=== PATIENT | male | born 1935 | race Caucasian/White ===

== ENCOUNTER 2024-04-22 12:50 | Inpatient (IN) | payer OTHER, BC ==
[2024-04-22] MEDS ORDERED: ACETAMINOPHEN INJECTION 100 ML ONE (13:34)
[2024-04-22] MEDS ORDERED: PIPERACILLIN/TAZOB 4.5 GM 4.5 GM/100 ML BAG IVPB ONE (13:35)
[2024-04-22 13:55] LABS: BASO % 0.1 % (0-2.0); HEMOGLOBIN 11.6 GM/dL (11.7-16.9); LYMPH % 3.8 % (8-40); MCH 34.4 pg (25.7-33.7); MCHC 33.3 g/dl (32.0-35.9); MEAN CELL VOLUME 103.4 fl (80-96); MEAN PLT VOLUME 8.3 fl (7.5-11.1); MONO % 9.2 % (3.8-10.2); NEUT % 86.9 % (42.8-82.8); PLATELET COUNT 211 10^3/uL (134-434); RBC 3.38 M/mm3 (4.00-5.60); RDW 14.1 % (11.9-15.9); VENOUS BASE EXCESS 8.3 mmol/L (-2-2); VENOUS O2 SATURATION 88.4 % (70-80); VENOUS PCO2 45.3 mmHg (38-52); VENOUS PH 7.48 (7.310-7.410); WHITE BLOOD COUNT 17.2 K/mm3 (4.0-10.0)
[2024-04-22] MEDS: PIPERACILLIN/TAZOB 4.5 GM 4.5 GM in DEXTROSE 5%-WATER 100 ML IVPB ONE (14:02)
[2024-04-22] MEDS: ACETAMINOPHEN 1000 MG/100 ML BAG IVPB ONE (14:02)
[2024-04-22] MEDS: SODIUM CHLORIDE 0.9% 1000 ML INFUS.BAG IV STA (14:03)
[2024-04-22 14:07] LABS: PH,URINE 5.5 (5.0-8.0); URINE APPEARANCE CLEAR; URINE BILIRUBIN NEGATIVE (NEGATIVE); URINE COLOR YELLOW; URINE GLUCOSE (UA) NEGATIVE (NEGATIVE); URINE KETONE NEGATIVE (NEGATIVE); URINE LEUK ESTERASE NEGATIVE (NEGATIVE); URINE NITRITE NEGATIVE (NEGATIVE); URINE PROTEIN NEGATIVE (NEGATIVE); URINE UROBILINOGEN 0.2 mg/dL (0.2-1.0)
[2024-04-22 14:09] LABS: INR 2.03 (0.83-1.09); PROTHROMBIN TIME (PATIENT) 22.5 SEC (9.7-13.0)
[2024-04-22 14:15] LABS: POTASSIUM 3.7 mmol/L (3.5-5.1)
[2024-04-22 14:17] LABS: BLOOD UREA NITROGEN 39.8 mg/dL (7-18); CALCIUM 9.5 mg/dL (8.5-10.1)
[2024-04-22 14:20] LABS: CREATININE 1.6 mg/dL (0.55-1.3)
[2024-04-22] MEDS ORDERED: ALBUTEROL SO4 2.5/IPRATROPIUM 0.5 INH SOL 3 ML VIAL.NEB. NEB ONE (14:20)
[2024-04-22 14:22] LABS: BILIRUBIN,TOTAL 0.7 mg/dL (0.2-1); TOT PROT 6.2 g/dl (6.4-8.2)
[2024-04-22 14:26] LABS: LACTIC ACID 3.6 mmol/L (0.4-2.0)
[2024-04-22] MEDS: VANCOMYCIN PREMIX 1.5 GM 1,500 MG/300 ML BAG IVPB ONE (14:41)
[2024-04-22] MEDS: ALBUTEROL SO4 2.5/IPRATROPIUM 0.5 INH SOL 3 ML VIAL.NEB. NEB ONE (14:41)
[2024-04-22] MEDS: VANCOMYCIN HCL 1,500 MG in DEXTROSE 5%-WATER - 500 ML IVPB ONE (14:42)
[2024-04-22] MEDS: ALBUTEROL SO4 2.5/IPRATROPIUM 0.5 INH SOL 3 ML VIAL.NEB. NEB SCH ×3 (16:15→21:03)
[2024-04-22] MEDS ORDERED: morphine SULFATE 10 MG/5 ML UNIT-DOSE CUP PO PRN (17:24)
[2024-04-22] MEDS: methylPREDNISolone NA SUCC 40 MG/1 ML VIAL IVPUSH SCH (20:48)
[2024-04-22] MEDS: LACTATED RINGERS SOLUTION 1,000 ML/1,000 ML INFUS.BAG IV SCH (21:04)
[2024-04-22] MEDS: ACETAMINOPHEN 1000 MG/100 ML BAG IVPB PRN (21:06)
[2024-04-22] MEDS: PANTOPRAZOLE SODIUM 40 MG VIAL IVPUSH SCH (23:15)
[2024-04-22] MEDS: morphine SULFATE 4 MG/ML VIAL IVPUSH PRN (23:15)
[2024-04-22] MEDS: PIPERACILLIN/TAZOB 4.5 GM 4.5 GM/100 ML BAG IVPB SCH (23:19)
[2024-04-23] MEDS: ALBUTEROL SO4 2.5/IPRATROPIUM 0.5 INH SOL 3 ML VIAL.NEB. NEB SCH (00:07)
[2024-04-23] MEDS: morphine SULFATE 4 MG/ML VIAL IVPUSH ONE (06:10)
[2024-04-23 08:40] LABS: BASO % 0.4 % (0-2.0); EOS % 0.1 % (0-4.5); HEMATOCRIT 30.2 % (35.4-49); HEMOGLOBIN 10.1 GM/dL (11.7-16.9); LYMPH % 5.1 % (8-40); MCHC 33.4 g/dl (32.0-35.9); MEAN CELL VOLUME 104.6 fl (80-96); MEAN PLT VOLUME 8.3 fl (7.5-11.1); MONO % 4.5 % (3.8-10.2); NEUT % 89.9 % (42.8-82.8); PLATELET COUNT 171 10^3/uL (134-434); RBC 2.89 M/mm3 (4.00-5.60); RDW 14.5 % (11.9-15.9); WHITE BLOOD COUNT 13.4 K/mm3 (4.0-10.0)
[2024-04-23 08:55] LABS: POTASSIUM 3.1 mmol/L (3.5-5.1)
[2024-04-23 08:57] LABS: CALCIUM 9.1 mg/dL (8.5-10.1)
[2024-04-23 08:58] LABS: BLOOD UREA NITROGEN 46.6 mg/dL (7-18)
[2024-04-23 09:01] LABS: CREATININE 1.7 mg/dL (0.55-1.3)
[2024-04-23] MEDS: VANCOMYCIN/WATER 1250 MG 1,250 MG/250 ML BAG IVPB SCH (14:30)
[2024-04-23] MEDS: PIPERACILLIN/TAZOB 3.375 GM 50 ML IVPB SCH (17:10)
[2024-04-23] MEDS: PIPERACILLIN/TAZOB 4.5 GM 4.5 GM in DEXTROSE 5%-WATER 100 ML IVPB SCH (17:19)
[2024-04-23] MEDS: AMINO ACIDS 4.25%/D5W 1,000 ML IV SCH (19:35)
[2024-04-23] MEDS: D5-1/2NS+10 MEQ KCL - 10 MEQ/1,000 ML INFUS.BAG IV SCH (20:01)
[2024-04-23] MEDS: morphine SULFATE 4 MG/ML VIAL IVPUSH PRN (23:02)
[2024-04-24 07:37] LABS: HEMATOCRIT 29.1 % (35.4-49); HEMOGLOBIN 9.5 GM/dL (11.7-16.9); MCH 34.5 pg (25.7-33.7); MCHC 32.7 g/dl (32.0-35.9); MEAN CELL VOLUME 105.6 fl (80-96); MEAN PLT VOLUME 8.2 fl (7.5-11.1); PLATELET COUNT 180 10^3/uL (134-434); RBC 2.75 M/mm3 (4.00-5.60); RDW 14.2 % (11.9-15.9)
[2024-04-24 07:50] LABS: CHLORIDE 109 mmol/L (98-107); POTASSIUM 2.9 mmol/L (3.5-5.1); SODIUM 146 mmol/L (136-145)
[2024-04-24 07:53] LABS: CALCIUM 9.4 mg/dL (8.5-10.1)
[2024-04-24 07:54] LABS: ALBUMIN 2.7 g/dl (3.4-5.0); ANION GAP 7 mmol/L (4-13); BLOOD UREA NITROGEN 39.6 mg/dL (7-18); CO2 31 mmol/L (21-32); GLUCOSE,RANDOM 165 mg/dL (74-106); MAGNESIUM 2.2 mg/dL (1.8-2.4)
[2024-04-24 07:57] LABS: CREATININE 1.3 mg/dL (0.55-1.3)
[2024-04-24 07:58] LABS: BILIRUBIN,TOTAL 0.6 mg/dL (0.2-1); PHOSPHOROUS 3.1 mg/dL (2.5-4.9); SGOT/AST 18 U/L (15-37); SGPT/ALT 15 U/L (13-61); TOT PROT 5.4 g/dl (6.4-8.2)
[2024-04-24 08:11] LABS: ALK PHOS 92 U/L (45-117)
[2024-04-24] MEDS: PANTOPRAZOLE SODIUM 40 MG VIAL IVPUSH SCH (10:23)
[2024-04-24] MEDS: D5-1/2NS+20 MEQ KCL - 20 MEQ/1,000 ML INFUS.BAG IV SCH (19:38)
[2024-04-24] MEDS: KCL 10 MEQ IVPB 10 MEQ/100 ML INFUS.BAG IVPB SCH (19:39)
[2024-04-25 08:29] LABS: POTASSIUM 3.2 mmol/L (3.5-5.1)
[2024-04-25 08:37] LABS: ALBUMIN 2.8 g/dl (3.4-5.0); BLOOD UREA NITROGEN 31.2 mg/dL (7-18); CALCIUM 9.6 mg/dL (8.5-10.1)
[2024-04-25 08:40] LABS: CREATININE 1.1 mg/dL (0.55-1.3)
[2024-04-25 08:41] LABS: BILIRUBIN,TOTAL 0.6 mg/dL (0.2-1); PHOSPHOROUS 2.1 mg/dL (2.5-4.9); TOT PROT 5.5 g/dl (6.4-8.2)
[2024-04-25 08:55] LABS: HEMATOCRIT 28.4 % (35.4-49); HEMOGLOBIN 9.5 GM/dL (11.7-16.9); MCH 35.1 pg (25.7-33.7); MCHC 33.3 g/dl (32.0-35.9); MEAN CELL VOLUME 105.2 fl (80-96); MEAN PLT VOLUME 8.2 fl (7.5-11.1); PLATELET COUNT 190 10^3/uL (134-434); RDW 14.2 % (11.9-15.9); WHITE BLOOD COUNT 13.2 K/mm3 (4.0-10.0)
[2024-04-25] MEDS: POTASSIUM PHOSPHATE 30 MM in SODIUM CHLORIDE 500 ML IVPB ONE (17:38)
[2024-04-25] MEDS: methylPREDNISolone NA SUCC 40 MG/1 ML VIAL IVPUSH SCH (18:45)
[2024-04-26 07:13] LABS: HEMATOCRIT 28.6 % (35.4-49); HEMOGLOBIN 9.4 GM/dL (11.7-16.9); MCH 34.8 pg (25.7-33.7); MCHC 32.8 g/dl (32.0-35.9); MEAN CELL VOLUME 106.3 fl (80-96); MEAN PLT VOLUME 8.2 fl (7.5-11.1); PLATELET COUNT 185 10^3/uL (134-434); RBC 2.69 M/mm3 (4.00-5.60); RDW 14.3 % (11.9-15.9); WHITE BLOOD COUNT 11.3 K/mm3 (4.0-10.0)
[2024-04-26 07:43] LABS: POTASSIUM 3.7 mmol/L (3.5-5.1)
[2024-04-26 07:47] LABS: ALBUMIN 2.6 g/dl (3.4-5.0); CALCIUM 9.2 mg/dL (8.5-10.1)
[2024-04-26 07:48] LABS: BLOOD UREA NITROGEN 25.2 mg/dL (7-18); MAGNESIUM 2.1 mg/dL (1.8-2.4)
[2024-04-26 07:51] LABS: PHOSPHOROUS 3.6 mg/dL (2.5-4.9)
[2024-04-26 07:52] LABS: BILIRUBIN,TOTAL 0.6 mg/dL (0.2-1); TOT PROT 5.4 g/dl (6.4-8.2)
[2024-04-26] MEDS: FUROSEMIDE 40 MG/4 ML INJECTABLE VIAL IVPUSH ONE (13:47)
[2024-04-26] MEDS: APIXABAN 5 MG TABLET PO SCH (22:00)
[2024-04-28] MEDS: METOPROLOL TARTRATE 5 MG/5 ML VIAL IVPUSH PRN (08:16)
[2024-04-28 08:29] LABS: BASO % 0.1 % (0-2.0); EOS % 0.3 % (0-4.5); HEMATOCRIT 29.6 % (35.4-49); HEMOGLOBIN 9.9 GM/dL (11.7-16.9); LYMPH % 15.9 % (8-40); MCH 35.1 pg (25.7-33.7); MCHC 33.6 g/dl (32.0-35.9); MEAN CELL VOLUME 104.4 fl (80-96); MEAN PLT VOLUME 7.8 fl (7.5-11.1); MONO % 6.2 % (3.8-10.2); NEUT % 77.5 % (42.8-82.8); PLATELET COUNT 180 10^3/uL (134-434); RBC 2.83 M/mm3 (4.00-5.60); RDW 14.3 % (11.9-15.9); WHITE BLOOD COUNT 9.5 K/mm3 (4.0-10.0)
[2024-04-28 09:01] LABS: ALBUMIN 2.7 g/dl (3.4-5.0); BLOOD UREA NITROGEN 16.2 mg/dL (7-18); CALCIUM 9.6 mg/dL (8.5-10.1); MAGNESIUM 2.2 mg/dL (1.8-2.4)
[2024-04-28 09:04] LABS: BILIRUBIN,TOTAL 0.8 mg/dL (0.2-1); CREATININE 0.7 mg/dL (0.55-1.3); TOT PROT 5.2 g/dl (6.4-8.2)
[2024-04-28 09:05] LABS: PHOSPHOROUS 1.9 mg/dL (2.5-4.9)
[2024-04-28] MEDS: KCL 10 MEQ IVPB 10 MEQ/100 ML INFUS.BAG IVPB SCH (10:35)
[2024-04-28] MEDS: POTASSIUM PHOSPHATE 30 MM in DEXTROSE 5%-WATER - 500 ML IVPB ONE (15:48)
[2024-04-28] MEDS: DEXTROSE 5%-WATER - 1,000 ML IV SCH (17:40)
[2024-04-28 23:53] VITALS: BMI 23.0
[2024-04-29 08:36] LABS: BLOOD UREA NITROGEN 15.4 mg/dL (7-18); CALCIUM 8.4 mg/dL (8.5-10.1); MAGNESIUM 1.8 mg/dL (1.8-2.4)
[2024-04-29 08:37] LABS: ALBUMIN 2.5 g/dl (3.4-5.0); CREATININE 0.9 mg/dL (0.55-1.3)
[2024-04-29 08:38] LABS: BILIRUBIN,TOTAL 0.8 mg/dL (0.2-1)
[2024-04-29 08:39] LABS: PHOSPHOROUS 2.6 mg/dL (2.5-4.9)
[2024-04-29 08:40] LABS: HEMATOCRIT 29.5 % (35.4-49); HEMOGLOBIN 9.9 GM/dL (11.7-16.9); MCH 35.2 pg (25.7-33.7); MCHC 33.6 g/dl (32.0-35.9); MEAN CELL VOLUME 104.6 fl (80-96); MEAN PLT VOLUME 8.3 fl (7.5-11.1); PLATELET COUNT 171 10^3/uL (134-434); RBC 2.82 M/mm3 (4.00-5.60); RDW 14.3 % (11.9-15.9); WHITE BLOOD COUNT 11.4 K/mm3 (4.0-10.0)
[2024-04-29 08:48] LABS: TOT PROT 4.9 g/dl (6.4-8.2)
[2024-04-29] MEDS ORDERED: KCL 10 MEQ IVPB 10 MEQ/100 ML INFUS.BAG IVPB SCH (11:30)
[2024-04-29] MEDS: KCL 10 MEQ IVPB 10 MEQ/100 ML INFUS.BAG IVPB SCH ×2 (13:08→16:34)
[2024-04-30] MEDS: KCL 10 MEQ IVPB 10 MEQ/100 ML INFUS.BAG IVPB SCH (00:12)
[2024-04-30 08:25] LABS: HEMATOCRIT 29.9 % (35.4-49); MCH 34.7 pg (25.7-33.7); MCHC 33.3 g/dl (32.0-35.9); MEAN CELL VOLUME 104.4 fl (80-96); MEAN PLT VOLUME 8.4 fl (7.5-11.1); PLATELET COUNT 170 10^3/uL (134-434); RBC 2.86 M/mm3 (4.00-5.60); RDW 14.4 % (11.9-15.9); WHITE BLOOD COUNT 11.5 K/mm3 (4.0-10.0)
[2024-04-30] MEDS: ALBUTEROL SO4 2.5/IPRATROPIUM 0.5 INH SOL 3 ML VIAL.NEB. NEB PRN (08:42)
[2024-04-30 08:46] LABS: POTASSIUM 3.7 mmol/L (3.5-5.1)
[2024-04-30 08:56] LABS: CALCIUM 8.6 mg/dL (8.5-10.1)
[2024-04-30 08:57] LABS: ALBUMIN 2.4 g/dl (3.4-5.0); BLOOD UREA NITROGEN 12.8 mg/dL (7-18); MAGNESIUM 1.7 mg/dL (1.8-2.4)
[2024-04-30 09:00] LABS: PHOSPHOROUS 1.7 mg/dL (2.5-4.9)
[2024-04-30 09:01] LABS: BILIRUBIN,TOTAL 0.7 mg/dL (0.2-1); CREATININE 0.7 mg/dL (0.55-1.3)
[2024-04-30] MEDS: METOPROLOL TARTRATE 25 MG TABLET (FP) PO SCH (22:33)
[2024-05-01 07:36] VITALS: RESP 18
[2024-05-01 07:39] LABS: HEMOGLOBIN 9.9 GM/dL (11.7-16.9); MCH 34.8 pg (25.7-33.7); MCHC 33.1 g/dl (32.0-35.9); MEAN CELL VOLUME 105.4 fl (80-96); MEAN PLT VOLUME 8.6 fl (7.5-11.1); PLATELET COUNT 169 10^3/uL (134-434); RBC 2.84 M/mm3 (4.00-5.60); RDW 13.9 % (11.9-15.9); WHITE BLOOD COUNT 12.2 K/mm3 (4.0-10.0)
[2024-05-01 08:10] LABS: POTASSIUM 3.5 mmol/L (3.5-5.1)
[2024-05-01 08:16] LABS: ALBUMIN 2.4 g/dl (3.4-5.0); BLOOD UREA NITROGEN 11.3 mg/dL (7-18); MAGNESIUM 1.5 mg/dL (1.8-2.4)
[2024-05-01 08:17] LABS: CALCIUM 8.4 mg/dL (8.5-10.1)
[2024-05-01 08:20] LABS: CREATININE 0.7 mg/dL (0.55-1.3); PHOSPHOROUS 1.5 mg/dL (2.5-4.9)
[2024-05-01 08:21] LABS: BILIRUBIN,TOTAL 0.8 mg/dL (0.2-1); TOT PROT 5.1 g/dl (6.4-8.2)
[2024-05-01] MEDS ORDERED: MAGNESIUM 2GM/50ML STERILE WATER IVPB IVPB ONE (09:31)
[2024-05-01] MEDS: MAGNESIUM 2GM/50ML STERILE WATER IVPB IVPB SCH (10:09)
[2024-05-01] MEDS: NAPH,MB-DB/K PH,MBDB POWDER PACKET PO ONE (10:09)
[2024-05-01] MEDS: POTASSIUM PHOSPHATE 30 MM in DEXTROSE 5%-WATER - 500 ML IVPB ONE (11:23)
[2024-05-01 18:21] VITALS: BP 119/72; PULSE 87; TEMP 98.5
[2024-05-01] MEDS: ACETAMINOPHEN 500 MG TABLET (FP) PO ONE (21:25)
== END 2024-05-01 21:37 | DRG 871 ==
LOC: JER 12:50 → JERBED 15:40 → J4W 17:53
PROVIDERS: ADMIT Internal Medicine; ATTEND Internal Medicine
DX: A41.89 Other specified sepsis (principal); J12.1 Respiratory syncytial virus pneumonia; J18.9 Pneumonia, unspecified organism; E87.0 Hyperosmolality and hypernatremia; I48.20 Chronic atrial fibrillation, unspecified; I50.32 Chronic diastolic (congestive) heart failure; K92.0 Hematemesis; J44.0 Chronic obstructive pulmonary disease with (acute) lower respiratory infection; I11.0 Hypertensive heart disease with heart failure; N40.0 Benign prostatic hyperplasia without lower urinary tract symptoms; R00.0 Tachycardia, unspecified; E83.39 Other disorders of phosphorus metabolism; E87.6 Hypokalemia; J44.9 Chronic obstructive pulmonary disease, unspecified; F01.50 Vascular dementia, unspecified severity, without behavioral disturbance, psychotic disturbance, mood disturbance, and anxiety; I69.391 Dysphagia following cerebral infarction; Z95.0 Presence of cardiac pacemaker; Z96.659 Presence of unspecified artificial knee joint
CPT/HCPCS: 0241U-QW; 36415; 71045-TC-FY; 71250-TC; 80048; 80053; 81003; 82607; 82728; 82746; 82803; 82962; 83540; 83550; 83605; 83735; 84100; 84132; 84484; 85025; 85027; 85610; 85730; 86850; 86900; 86901; 87040; 87086; 87186; 93005; 93010; 93971-TC; 94640; 94660; 99285-25; G0480; J0131

== ENCOUNTER 2024-06-06 14:12 | Inpatient (IN) | payer OTHER, BC ==
[2024-06-06] MEDS ORDERED: ALBUTEROL SO4 2.5/IPRATROPIUM 0.5 INH SOL 3 ML VIAL.NEB. NEB ONE ×3 (15:28→20:54)
[2024-06-06] MEDS: ALBUTEROL SO4 2.5/IPRATROPIUM 0.5 INH SOL 3 ML VIAL.NEB. NEB SCH ×2 (15:31→21:00)
[2024-06-06 15:41] LABS: VENOUS BASE EXCESS 10.3 mmol/L (-2-2); VENOUS O2 SATURATION 25.1 % (70-80); VENOUS PH 7.322 (7.310-7.410)
[2024-06-06 15:43] LABS: BASO % 0.3 % (0-2.0); EOS % 0.1 % (0-4.5); HEMATOCRIT 35.5 % (35.4-49); HEMOGLOBIN 11.1 GM/dL (11.7-16.9); LYMPH % 11.1 % (8-40); MCH 32.5 pg (25.7-33.7); MCHC 31.2 g/dl (32.0-35.9); MEAN CELL VOLUME 104.2 fl (80-96); MEAN PLT VOLUME 8.6 fl (7.5-11.1); MONO % 3.9 % (3.8-10.2); NEUT % 84.6 % (42.8-82.8); PLATELET COUNT 302 10^3/uL (134-434)
[2024-06-06 15:51] LABS: INR 1.67 (0.83-1.09); PROTHROMBIN TIME (PATIENT) 18.9 SEC (9.7-13.0)
[2024-06-06 15:53] LABS: EPI CELLS 10 /uL (0-25.1); HYALINE CASTS 0 /uL (0-3.1); URINE APPEARANCE CLEAR; URINE BACTERIA 5 /uL (0-1359); URINE BILIRUBIN NEGATIVE (NEGATIVE); URINE COLOR YELLOW; URINE GLUCOSE (UA) NEGATIVE (NEGATIVE); URINE KETONE NEGATIVE (NEGATIVE); URINE LEUK ESTERASE NEGATIVE (NEGATIVE); URINE NITRITE NEGATIVE (NEGATIVE); URINE PROTEIN NEGATIVE (NEGATIVE); URINE RBC 131 /uL (0-23.9); URINE UROBILINOGEN 0.2 mg/dL (0.2-1.0); URINE WBC 14 /uL (0-25.8)
[2024-06-06 15:54] LABS: ACTIVATED PTT 34.8 SECONDS (25.2-36.5); VENOUS PCO2 77.1 mmHg (38-52)
[2024-06-06 16:10] LABS: LACTIC ACID 3.8 mmol/L (0.4-2.0)
[2024-06-06] MEDS: SODIUM CHLORIDE 0.9% 500 ML INFUS.BAG IV ONE ×2 (16:29→17:52)
[2024-06-06] MEDS: SODIUM CHLORIDE 500 ML IV STA ×2 (16:30→21:00)
[2024-06-06] MEDS ORDERED: PIPERACILLIN/TAZOB 3.375 GM 3.375 GM/50 ML BAG IVPB ONE (16:32)
[2024-06-06] MEDS ORDERED: methylPREDNISolone NA SUCC 125 MG/2 ML VIAL ONE ×2 (16:32→16:36)
[2024-06-06] MEDS ORDERED: MAGNESIUM SULFATE IN WATER 2 GM/50 ML IVPB IVPB ONE (16:36)
[2024-06-06 16:45] LABS: ALBUMIN 2.5 g/dl (3.4-5.0); BILIRUBIN,TOTAL 0.2 mg/dL (0.2-1); BLOOD UREA NITROGEN 28.3 mg/dL (7-18); CALCIUM 9.1 mg/dL (8.5-10.1); TOT PROT 6.9 g/dl (6.4-8.2)
[2024-06-06] MEDS: MAGNESIUM SULFATE IN WATER 2 GM/50 ML IVPB IVPB ONE (16:46)
[2024-06-06] MEDS: methylPREDNISolone NA SUCC 125 MG/2 ML VIAL IVPB ONE (16:46)
[2024-06-06] MEDS: PIPERACILLIN/TAZOB 3.375 GM 3.375 GM in DEXTROSE 5%-WATER - 50 ML IVPB ONE (16:58)
[2024-06-06] MEDS ORDERED: VANCOMYCIN 1 GM PREMIX (F) 1 GM/200 ML BAG ONE (17:39)
[2024-06-06] MEDS: VANCOMYCIN 1,000 MG in DEXTROSE 5%-WATER - 250 ML IVPB ONE (18:04)
[2024-06-06] MEDS ORDERED: METOPROLOL TARTRATE 5 MG/5 ML VIAL IVPUSH PRN (18:32)
[2024-06-06 19:00] LABS: LACTIC ACID 3.6 mmol/L (0.4-2.0)
[2024-06-06 19:23] LABS: PHOSPHOROUS 2.7 mg/dL (2.5-4.9)
[2024-06-06] MEDS ORDERED: PIPERACILLIN/TAZOB 4.5 GM 4.5 GM/100 ML BAG IVPB ONE (20:54)
[2024-06-06] MEDS: SODIUM CHLORIDE 1,000 ML IV SCH (21:00)
[2024-06-06] MEDS: PIPERACILLIN/TAZOB 4.5 GM 4.5 GM/100 ML BAG IVPB SCH (21:49)
[2024-06-07] MEDS: ENOXAPARIN NA (PORCINE) 80 MG/0.8 ML DISP.SYRIN SQ SCH (00:05)
[2024-06-07] MEDS: VANCOMYCIN PREMIX 1.5 GM 1,500 MG/300 ML BAG IVPB SCH (05:19)
[2024-06-07] MEDS: ENOXAPARIN NA (PORCINE) 100 MG/1 ML DISP.SYRIN SQ SCH (09:40)
[2024-06-07] MEDS ORDERED: methylPREDNISolone NA SUCC 40 MG/1 ML VIAL IVPUSH SCH (10:00)
[2024-06-07 10:23] LABS: POTASSIUM 3.7 mmol/L (3.5-5.1)
[2024-06-07 10:27] LABS: LACTIC ACID 3.9 mmol/L (0.4-2.0)
[2024-06-07 10:29] LABS: ALBUMIN 2.5 g/dl (3.4-5.0); BASO % 0.2 % (0-2.0); BLOOD UREA NITROGEN 23.1 mg/dL (7-18); HEMATOCRIT 30.1 % (35.4-49); HEMOGLOBIN 9.9 GM/dL (11.7-16.9); LYMPH % 10.5 % (8-40); MAGNESIUM 2.3 mg/dL (1.8-2.4); MCH 34.2 pg (25.7-33.7); MEAN CELL VOLUME 103.7 fl (80-96); MEAN PLT VOLUME 8.7 fl (7.5-11.1); MONO % 4.5 % (3.8-10.2); NEUT % 84.8 % (42.8-82.8); PLATELET COUNT 263 10^3/uL (134-434); RBC 2.91 M/mm3 (4.00-5.60); RDW 14.3 % (11.9-15.9); WHITE BLOOD COUNT 14.2 K/mm3 (4.0-10.0)
[2024-06-07 10:32] LABS: CREATININE 0.9 mg/dL (0.55-1.3); PHOSPHOROUS 1.2 mg/dL (2.5-4.9)
[2024-06-07 10:34] LABS: BILIRUBIN,TOTAL 0.5 mg/dL (0.2-1); TOT PROT 6.2 g/dl (6.4-8.2)
[2024-06-07 13:42] LABS: ARTERIAL BLD GAS O2 SATURATION 98.9 % (95-98); ARTERIAL BLOOD GAS BASE EXCESS 5.9 mmol/L (-2-2); ARTERIAL BLOOD GAS PO2 115.6 mmHg (80-100)
[2024-06-07 13:49] LABS: ALLENS TEST POSITIVE
[2024-06-07 13:50] LABS: ARTERIAL BLOOD GAS pH 7.651 (7.350-7.450)
[2024-06-07 13:51] LABS: VENT MODE S/T; VENT RATE 14
[2024-06-07] MEDS ORDERED: DEXTROSE 5%-WATER - 1,000 ML IV SCH (15:30)
[2024-06-07] MEDS: PANTOPRAZOLE SODIUM 40 MG VIAL IVPUSH SCH (15:50)
[2024-06-07 17:00] LABS: LACTIC ACID 3.5 mmol/L (0.4-2.0)
[2024-06-07] MEDS: DEXTROSE 5%-WATER - 1,000 ML IV SCH ×2 (17:05→17:52)
[2024-06-07] MEDS: MUPIROCIN 2% TOPICAL OINTMENT 22 GM TUBE TP SCH (17:53)
[2024-06-07 20:07] VITALS: BMI 23.9
[2024-06-08] MEDS ORDERED: VANCOMYCIN 1,000 MG in DEXTROSE 5%-WATER - 250 ML IVPB SCH (06:00)
[2024-06-08 08:37] LABS: LACTIC ACID 2.9 mmol/L (0.4-2.0)
[2024-06-08 08:40] LABS: BASO % 0.2 % (0-2.0); EOS % 0.1 % (0-4.5); HEMATOCRIT 27.7 % (35.4-49); HEMOGLOBIN 9.1 GM/dL (11.7-16.9); LYMPH % 11.5 % (8-40); MCH 33.8 pg (25.7-33.7); MCHC 32.8 g/dl (32.0-35.9); MEAN CELL VOLUME 103.3 fl (80-96); MEAN PLT VOLUME 8.8 fl (7.5-11.1); MONO % 6.4 % (3.8-10.2); NEUT % 81.8 % (42.8-82.8); PLATELET COUNT 258 10^3/uL (134-434); RBC 2.68 M/mm3 (4.00-5.60); RDW 14.8 % (11.9-15.9); WHITE BLOOD COUNT 13.2 K/mm3 (4.0-10.0)
[2024-06-08 08:45] LABS: POTASSIUM 3.1 mmol/L (3.5-5.1)
[2024-06-08 08:50] LABS: CALCIUM 8.7 mg/dL (8.5-10.1)
[2024-06-08 08:51] LABS: ALBUMIN 2.3 g/dl (3.4-5.0); BLOOD UREA NITROGEN 21.7 mg/dL (7-18)
[2024-06-08 08:54] LABS: CREATININE 1.1 mg/dL (0.55-1.3)
[2024-06-08 08:56] LABS: BILIRUBIN,TOTAL 0.4 mg/dL (0.2-1); TOT PROT 5.8 g/dl (6.4-8.2)
[2024-06-08] MEDS: VANCOMYCIN/WATER FOR INJ (PEG) 1,000 MG/200 ML BAG IVPB SCH (09:57)
[2024-06-08] MEDS: KCL 10 MEQ IVPB 10 MEQ/100 ML INFUS.BAG IVPB SCH (09:58)
[2024-06-09 12:52] LABS: HEMATOCRIT 28.2 % (35.4-49); HEMOGLOBIN 9.2 GM/dL (11.7-16.9); MCH 33.2 pg (25.7-33.7); MCHC 32.8 g/dl (32.0-35.9); MEAN CELL VOLUME 101.3 fl (80-96); MEAN PLT VOLUME 8.3 fl (7.5-11.1); PLATELET COUNT 245 10^3/uL (134-434); RBC 2.78 M/mm3 (4.00-5.60); RDW 15.1 % (11.9-15.9); WHITE BLOOD COUNT 11.2 K/mm3 (4.0-10.0)
[2024-06-09 13:31] LABS: ANISOCYTOSIS 2+; CHLORIDE 103 mmol/L (98-107); MACROCYTOSIS 2+; SODIUM 141 mmol/L (136-145)
[2024-06-09 13:33] LABS: POTASSIUM 2.9 mmol/L (3.5-5.1)
[2024-06-09 13:34] LABS: CALCIUM 8.8 mg/dL (8.5-10.1)
[2024-06-09 13:35] LABS: ALBUMIN 2.3 g/dl (3.4-5.0); ANION GAP 9 mmol/L (4-13); CO2 28 mmol/L (21-32); GLUCOSE,RANDOM 91 mg/dL (74-106)
[2024-06-09 13:38] LABS: CREATININE 0.9 mg/dL (0.55-1.3); SGOT/AST 21 U/L (15-37); SGPT/ALT 16 U/L (13-61)
[2024-06-09 13:39] LABS: BILIRUBIN,TOTAL 0.6 mg/dL (0.2-1)
[2024-06-09 13:40] LABS: TOT PROT 5.6 g/dl (6.4-8.2)
[2024-06-09 13:41] LABS: ALK PHOS 100 U/L (45-117)
[2024-06-09] MEDS: POTASSIUM CHLORIDE ORAL LIQUID 20 MEQ/15 ML PO SCH (15:09)
[2024-06-09] MEDS: TAMSULOSIN HCL 0.4 MG CAP PO SCH (15:48)
[2024-06-09] MEDS ORDERED: METOPROLOL TARTRATE 25 MG TABLET (FP) PO SCH (22:00)
[2024-06-09] MEDS: METOPROLOL TARTRATE 25 MG TABLET (FP) PO SCH (22:18)
[2024-06-10 08:15] LABS: HEMATOCRIT 26.6 % (35.4-49); HEMOGLOBIN 8.5 GM/dL (11.7-16.9); MCH 32.9 pg (25.7-33.7); MCHC 32.1 g/dl (32.0-35.9); MEAN CELL VOLUME 102.5 fl (80-96); MEAN PLT VOLUME 8.4 fl (7.5-11.1); PLATELET COUNT 219 10^3/uL (134-434); RBC 2.59 M/mm3 (4.00-5.60); RDW 14.9 % (11.9-15.9); WHITE BLOOD COUNT 9.8 K/mm3 (4.0-10.0)
[2024-06-10 09:03] LABS: POTASSIUM 3.1 mmol/L (3.5-5.1)
[2024-06-10 09:06] LABS: ALBUMIN 1.9 g/dl (3.4-5.0); BLOOD UREA NITROGEN 14.2 mg/dL (7-18); CALCIUM 8.1 mg/dL (8.5-10.1); MAGNESIUM 1.9 mg/dL (1.8-2.4)
[2024-06-10 09:09] LABS: CREATININE 0.9 mg/dL (0.55-1.3)
[2024-06-10 09:11] LABS: BILIRUBIN,TOTAL 0.6 mg/dL (0.2-1); TOT PROT 5.2 g/dl (6.4-8.2)
[2024-06-10 09:42] LABS: ANISOCYTOSIS 1+; MACROCYTOSIS 1+
[2024-06-10] MEDS: KCL 10 MEQ IVPB 10 MEQ/100 ML INFUS.BAG IVPB SCH (10:28)
[2024-06-10] MEDS: DEXTROSE 5%-WATER - 1,000 ML IV SCH ×2 (15:43→18:54)
[2024-06-10] MEDS: DEXTROSE 5%-WATER - 500 ML IV SCH (20:12)
[2024-06-11 07:33] LABS: HEMATOCRIT 28.4 % (35.4-49); HEMOGLOBIN 9.4 GM/dL (11.7-16.9); MCH 33.7 pg (25.7-33.7); MCHC 33.2 g/dl (32.0-35.9); MEAN CELL VOLUME 101.6 fl (80-96); MEAN PLT VOLUME 8.7 fl (7.5-11.1); PLATELET COUNT 202 10^3/uL (134-434); RDW 15.2 % (11.9-15.9); WHITE BLOOD COUNT 7.9 K/mm3 (4.0-10.0)
[2024-06-11 07:55] LABS: POTASSIUM 3.2 mmol/L (3.5-5.1)
[2024-06-11 07:57] LABS: CALCIUM 8.2 mg/dL (8.5-10.1)
[2024-06-11 07:58] LABS: ALBUMIN 1.9 g/dl (3.4-5.0); BLOOD UREA NITROGEN 10.1 mg/dL (7-18); MAGNESIUM 1.8 mg/dL (1.8-2.4)
[2024-06-11 08:01] LABS: CREATININE 0.8 mg/dL (0.55-1.3); PHOSPHOROUS 2.4 mg/dL (2.5-4.9)
[2024-06-11 08:02] LABS: BILIRUBIN,TOTAL 0.5 mg/dL (0.2-1); TOT PROT 5.1 g/dl (6.4-8.2)
[2024-06-11] MEDS: POTASSIUM CHLORIDE ORAL LIQUID 20 MEQ/15 ML PO ONE (14:39)
[2024-06-11] MEDS: POTASSIUM PHOSPHATE 30 MM in SODIUM CHLORIDE 500 ML IVPB ONE (15:09)
[2024-06-11] MEDS: APIXABAN 5 MG TABLET PO SCH (22:35)
[2024-06-11] MEDS: QUEtiapine FUMARATE 100 MG TABLET (FP) PO SCH (22:35)
[2024-06-12 08:24] LABS: BASO % 0.6 % (0-2.0); EOS % 1.2 % (0-4.5); HEMATOCRIT 27.4 % (35.4-49); HEMOGLOBIN 8.9 GM/dL (11.7-16.9); LYMPH % 18.2 % (8-40); MCH 33.3 pg (25.7-33.7); MCHC 32.4 g/dl (32.0-35.9); MEAN CELL VOLUME 102.9 fl (80-96); MEAN PLT VOLUME 9.1 fl (7.5-11.1); MONO % 10.9 % (3.8-10.2); NEUT % 69.1 % (42.8-82.8); PLATELET COUNT 212 10^3/uL (134-434); RBC 2.66 M/mm3 (4.00-5.60); RDW 15.4 % (11.9-15.9); WHITE BLOOD COUNT 8.3 K/mm3 (4.0-10.0)
[2024-06-12 08:45] LABS: POTASSIUM 3.9 mmol/L (3.5-5.1)
[2024-06-12 08:47] LABS: CALCIUM 7.9 mg/dL (8.5-10.1)
[2024-06-12 08:48] LABS: BLOOD UREA NITROGEN 7.8 mg/dL (7-18); MAGNESIUM 1.9 mg/dL (1.8-2.4)
[2024-06-12 08:51] LABS: CREATININE 0.7 mg/dL (0.55-1.3); PHOSPHOROUS 3.4 mg/dL (2.5-4.9)
[2024-06-12 08:52] LABS: BILIRUBIN,TOTAL 0.5 mg/dL (0.2-1); TOT PROT 5.2 g/dl (6.4-8.2)
[2024-06-12] MEDS: VANCOMYCIN/WATER FOR INJ (PEG) 1,000 MG/200 ML BAG IVPB SCH (10:24)
[2024-06-12] MEDS: ALBUTEROL SO4 2.5/IPRATROPIUM 0.5 INH SOL 3 ML VIAL.NEB. NEB SCH (15:51)
[2024-06-12] MEDS: PIPERACILLIN/TAZOB 4.5 GM 4.5 GM/100 ML BAG IVPB SCH (17:04)
[2024-06-12] MEDS: APIXABAN 5 MG TABLET PO SCH (21:50)
[2024-06-12] MEDS: QUEtiapine FUMARATE 100 MG TABLET (FP) PO SCH (21:50)
[2024-06-12] MEDS: METOPROLOL TARTRATE 25 MG TABLET (FP) PO SCH (21:50)
[2024-06-12] MEDS: MUPIROCIN 2% TOPICAL OINTMENT 22 GM TUBE TP SCH (21:51)
[2024-06-13] MEDS ORDERED: DEXTROSE 50%-WATER 25 GM/50 ML DISP.SYRIN IVPUSH PRN (08:16)
[2024-06-13] MEDS: TAMSULOSIN HCL 0.4 MG CAP PO SCH (08:56)
[2024-06-13 09:24] LABS: HEMATOCRIT 26.8 % (35.4-49); HEMOGLOBIN 8.9 GM/dL (11.7-16.9); MCH 33.7 pg (25.7-33.7); MCHC 33.3 g/dl (32.0-35.9); MEAN CELL VOLUME 101.2 fl (80-96); PLATELET COUNT 195 10^3/uL (134-434); RBC 2.65 M/mm3 (4.00-5.60); WHITE BLOOD COUNT 7.9 K/mm3 (4.0-10.0)
[2024-06-13] MEDS: VANCOMYCIN/WATER FOR INJ (PEG) 1,000 MG/200 ML BAG IVPB SCH (09:52)
[2024-06-13] MEDS: PANTOPRAZOLE SODIUM 40 MG VIAL IVPUSH SCH (09:52)
[2024-06-13 09:56] LABS: POTASSIUM 3.2 mmol/L (3.5-5.1)
[2024-06-13 10:07] LABS: ALBUMIN 1.9 g/dl (3.4-5.0); BLOOD UREA NITROGEN 5.9 mg/dL (7-18)
[2024-06-13 10:08] LABS: CALCIUM 8.2 mg/dL (8.5-10.1)
[2024-06-13 10:09] LABS: MAGNESIUM 1.9 mg/dL (1.8-2.4)
[2024-06-13 10:10] LABS: CREATININE 0.7 mg/dL (0.55-1.3)
[2024-06-13 10:11] LABS: BILIRUBIN,TOTAL 0.5 mg/dL (0.2-1); TOT PROT 4.8 g/dl (6.4-8.2)
[2024-06-13 10:12] LABS: PHOSPHOROUS 2.5 mg/dL (2.5-4.9)
[2024-06-13] MEDS ORDERED: NAPH,MB-DB/K PH,MBDB POWDER PACKET PO ONE (14:53)
[2024-06-13] MEDS: SILVER SULFADIAZINE 1% TOP CREAM 50 GM JAR TP SCH (15:36)
[2024-06-13] MEDS: DEXTROSE 5%-WATER - 1,000 ML IV SCH (15:37)
[2024-06-13] MEDS: KCL 10 MEQ IVPB 10 MEQ/100 ML INFUS.BAG IVPB SCH (15:49)
[2024-06-13] MEDS: ZINC OXIDE 20% TOPICAL OINTMENT 30 GM TUBE TP SCH (22:35)
[2024-06-14 09:30] LABS: HEMATOCRIT 25.3 % (35.4-49); HEMOGLOBIN 8.4 GM/dL (11.7-16.9); MCH 33.7 pg (25.7-33.7); MCHC 33.3 g/dl (32.0-35.9); MEAN CELL VOLUME 101.2 fl (80-96); PLATELET COUNT 191 10^3/uL (134-434); RDW 14.8 % (11.9-15.9); WHITE BLOOD COUNT 7.2 K/mm3 (4.0-10.0)
[2024-06-14 09:53] LABS: POTASSIUM 3.1 mmol/L (3.5-5.1)
[2024-06-14 09:57] LABS: ALBUMIN 1.8 g/dl (3.4-5.0)
[2024-06-14 09:58] LABS: BLOOD UREA NITROGEN 6.3 mg/dL (7-18); MAGNESIUM 1.8 mg/dL (1.8-2.4)
[2024-06-14 10:01] LABS: CREATININE 0.7 mg/dL (0.55-1.3); PHOSPHOROUS 2.3 mg/dL (2.5-4.9)
[2024-06-14 10:02] LABS: BILIRUBIN,TOTAL 0.5 mg/dL (0.2-1); TOT PROT 4.7 g/dl (6.4-8.2)
[2024-06-14] MEDS: POTASSIUM PHOSPHATE 30 MM in DEXTROSE 5%-WATER - 500 ML IVPB ONE (17:04)
[2024-06-15 23:33] VITALS: RESP 18
[2024-06-16 10:58] LABS: POTASSIUM 3.1 mmol/L (3.5-5.1)
[2024-06-16 10:59] LABS: CALCIUM 8.4 mg/dL (8.5-10.1)
[2024-06-16 11:00] LABS: MAGNESIUM 1.7 mg/dL (1.8-2.4)
[2024-06-16 11:03] LABS: CREATININE 0.7 mg/dL (0.55-1.3); PHOSPHOROUS 2.3 mg/dL (2.5-4.9)
[2024-06-16 22:37] VITALS: BP 105/60; PULSE 94; TEMP 97.9
== END 2024-06-17 05:35 | DRG 871 ==
LOC: JER 14:12 → JERBED 17:48 → J4S 06-07 01:36 → J6S 06-12 13:52
PROVIDERS: ADMIT Student in an Organized Health Care Education/Training Program; ATTEND Internal Medicine
DX: A41.89 Other specified sepsis (principal); J18.9 Pneumonia, unspecified organism; J96.01 Acute respiratory failure with hypoxia; J96.02 Acute respiratory failure with hypercapnia; E87.20 Acidosis, unspecified; E87.0 Hyperosmolality and hypernatremia; I50.32 Chronic diastolic (congestive) heart failure; E87.6 Hypokalemia; I11.0 Hypertensive heart disease with heart failure; D64.9 Anemia, unspecified; I48.91 Unspecified atrial fibrillation; J44.9 Chronic obstructive pulmonary disease, unspecified; I69.391 Dysphagia following cerebral infarction; R13.10 Dysphagia, unspecified; F01.50 Vascular dementia, unspecified severity, without behavioral disturbance, psychotic disturbance, mood disturbance, and anxiety; N40.0 Benign prostatic hyperplasia without lower urinary tract symptoms; Z96.651 Presence of right artificial knee joint; Z95.0 Presence of cardiac pacemaker
CPT/HCPCS: 0241U-QW; 36415; 36600; 71045-TC-FY; 71250-TC; 76536-TC; 80048; 80053; 81003; 82272; 82607; 82746; 82803; 82962; 83605; 83735; 84100; 84439; 84443; 84484; 85025; 85027; 85610; 85730; 86850; 86900; 86901; 87040; 87077; 87081; 87086; 87635; 87899; 93005; 93010; 93970-TC; 94640; 94660; 99285-25; G0480

== ENCOUNTER 2024-08-19 10:10 | Inpatient (IN) | payer OTHER, BC ==
[2024-08-19 11:37] VITALS: BMI 19.6
[2024-08-19] MEDS ORDERED: ALBUTEROL SO4 2.5/IPRATROPIUM 0.5 INH SOL 3 ML VIAL.NEB. NEB ONE (12:02)
[2024-08-19] MEDS: DEXTROSE 5%-0.45% SALINE 1,000 ML IV SCH (12:05)
[2024-08-19 12:07] LABS: BASO % 0.5 % (0-2.0); HEMATOCRIT 33.8 % (35.4-49); HEMOGLOBIN 10.6 GM/dL (11.7-16.9); LYMPH % 30.3 % (8-40); MCHC 31.5 g/dl (32.0-35.9); MEAN CELL VOLUME 101.6 fl (80-96); MEAN PLT VOLUME 8.8 fl (7.5-11.1); MONO % 10.5 % (3.8-10.2); NEUT % 57.7 % (42.8-82.8); PLATELET COUNT 274 10^3/uL (134-434); RBC 3.32 M/mm3 (4.00-5.60); RDW 16.8 % (11.9-15.9); WHITE BLOOD COUNT 14.1 K/mm3 (4.0-10.0)
[2024-08-19] MEDS: ALBUTEROL SO4 2.5/IPRATROPIUM 0.5 INH SOL 3 ML VIAL.NEB. NEB SCH (12:10)
[2024-08-19 12:35] LABS: URINE APPEARANCE CLEAR; URINE BILIRUBIN NEGATIVE (NEGATIVE); URINE COLOR YELLOW; URINE GLUCOSE (UA) NEGATIVE (NEGATIVE); URINE KETONE NEGATIVE (NEGATIVE); URINE LEUK ESTERASE NEGATIVE (NEGATIVE); URINE NITRITE NEGATIVE (NEGATIVE); URINE PROTEIN NEGATIVE (NEGATIVE); URINE UROBILINOGEN 0.2 mg/dL (0.2-1.0)
[2024-08-19 12:39] LABS: LACTIC ACID 2.4 mmol/L (0.4-2.0)
[2024-08-19 12:47] LABS: POTASSIUM 3.9 mmol/L (3.5-5.1)
[2024-08-19 12:51] LABS: ALBUMIN 1.9 g/dl (3.4-5.0); BLOOD UREA NITROGEN 35.7 mg/dL (7-18); CALCIUM 7.8 mg/dL (8.5-10.1)
[2024-08-19 12:59] LABS: BILIRUBIN,TOTAL 0.4 mg/dL (0.2-1); CREATININE 1.5 mg/dL (0.55-1.3); TOT PROT 5.6 g/dl (6.4-8.2)
[2024-08-19] MEDS: SODIUM CHLORIDE 0.9% 500 ML INFUS.BAG IV ONE (13:53)
[2024-08-19 15:39] LABS: LACTIC ACID 6.6 mmol/L (0.4-2.0)
[2024-08-19] MEDS: LACTATED RINGERS SOLUTION 1,000 ML/1,000 ML INFUS.BAG IV SCH (17:40)
[2024-08-19] MEDS: VANCOMYCIN/WATER FOR INJ (PEG) 1 GM/200 ML BAG IVPB ONE (17:40)
[2024-08-19] MEDS: VANCOMYCIN 1 GM PREMIX (F) 1 GM/200 ML BAG IVPB ONE (17:40)
[2024-08-19] MEDS: PIPERACILLIN/TAZOB 4.5 GM 4.5 GM/100 ML BAG IVPB SCH (21:09)
[2024-08-19] MEDS: METOPROLOL TARTRATE 25 MG TABLET (FP) PO SCH (21:09)
[2024-08-19] MEDS: ACETAMINOPHEN 325 MG TABLET (FP) PO SCH (21:09)
[2024-08-19] MEDS: APIXABAN 5 MG TABLET PO SCH (21:09)
[2024-08-19] MEDS: QUEtiapine FUMARATE 100 MG TABLET (FP) PO SCH (21:09)
[2024-08-19] MEDS: MUPIROCIN 2% TOPICAL OINTMENT 22 GM TUBE TP SCH (21:11)
[2024-08-19] MEDS: ASCORBIC ACID 500 MG TABLET (FP) PO SCH (21:11)
[2024-08-19 22:30] LABS: LACTIC ACID 4.3 mmol/L (0.4-2.0)
[2024-08-20] MEDS: LACTATED RINGERS SOLUTION 1,000 ML/1,000 ML INFUS.BAG IV SCH (00:08)
[2024-08-20 06:50] LABS: BASO % 0.5 % (0-2.0); EOS % 0.3 % (0-4.5); HEMATOCRIT 28.4 % (35.4-49); HEMOGLOBIN 9.1 GM/dL (11.7-16.9); LYMPH % 23.9 % (8-40); MCH 32.4 pg (25.7-33.7); MEAN CELL VOLUME 101.4 fl (80-96); MEAN PLT VOLUME 9.2 fl (7.5-11.1); MONO % 9.5 % (3.8-10.2); NEUT % 65.8 % (42.8-82.8); PLATELET COUNT 238 10^3/uL (134-434); RDW 16.7 % (11.9-15.9); WHITE BLOOD COUNT 13.7 K/mm3 (4.0-10.0)
[2024-08-20 07:00] LABS: POTASSIUM 3.1 mmol/L (3.5-5.1)
[2024-08-20 07:04] LABS: CALCIUM 7.5 mg/dL (8.5-10.1)
[2024-08-20 07:05] LABS: ALBUMIN 1.6 g/dl (3.4-5.0); BLOOD UREA NITROGEN 36.2 mg/dL (7-18); MAGNESIUM 1.3 mg/dL (1.8-2.4)
[2024-08-20 07:08] LABS: CREATININE 1.5 mg/dL (0.55-1.3); PHOSPHOROUS 4.1 mg/dL (2.5-4.9)
[2024-08-20 07:09] LABS: BILIRUBIN,TOTAL 0.4 mg/dL (0.2-1); TOT PROT 4.7 g/dl (6.4-8.2)
[2024-08-20 07:17] LABS: LACTIC ACID 2.5 mmol/L (0.4-2.0)
[2024-08-20] MEDS: FOLIC ACID 1 MG TABLET (FP) PO SCH (09:14)
[2024-08-20] MEDS: TAMSULOSIN HCL 0.4 MG CAP PO SCH (09:14)
[2024-08-20] MEDS: PANTOPRAZOLE 40 MG TABLET PO SCH (09:15)
[2024-08-20] MEDS: KCL 10 MEQ IVPB 10 MEQ/100 ML INFUS.BAG IVPB SCH (09:15)
[2024-08-20] MEDS: MAGNESIUM 2GM/50ML STERILE WATER IVPB IVPB ONE (09:16)
[2024-08-20] MEDS: POTASSIUM CHLORIDE ORAL LIQUID 20 MEQ/15 ML PO ONE ×2 (09:37→09:38)
[2024-08-20] MEDS: SODIUM CHLORIDE 0.45% 1,000 ML IV SCH (09:37)
[2024-08-20] MEDS: MAGNESIUM SULFATE IN WATER 2 GM/50 ML IVPB IVPB ONE ×3 (09:37→14:16)
[2024-08-20] MEDS: BACITRACIN ZINC 15 GM TUBE TOPICAL OINTMENT TP SCH (10:44)
[2024-08-20] MEDS: SILVER SULFADIAZINE 1% TOP CREAM 50 GM JAR TP SCH (13:17)
[2024-08-20] MEDS: DEXTROSE 5%-LACTATED RINGERS 1,000 ML IV SCH (13:51)
[2024-08-20] MEDS: PIPERACILLIN/TAZOB 3.375 GM 50 ML IVPB SCH (13:59)
[2024-08-20] MEDS: PIPERACILLIN/TAZOB 4.5 GM 4.5 GM in DEXTROSE 5%-WATER 100 ML IVPB SCH (14:33)
[2024-08-20] MEDS ORDERED: D5-1/2NS+20 MEQ KCL - 20 MEQ/1,000 ML INFUS.BAG IV SCH (15:00)
[2024-08-20] MEDS ORDERED: DEXTROSE 5%-0.45% SALINE 1,000 ML with POTASSIUM CHLORIDE 20 MEQ IV SCH (19:00)
[2024-08-20] MEDS: POTASSIUM CHLORIDE 20 MEQ in DEXTROSE 5%-0.45% SALINE 1,000 ML IV SCH (19:37)
[2024-08-20 22:00] LABS: LACTIC ACID 3.1 mmol/L (0.4-2.0)
[2024-08-21 07:57] LABS: BASO % 0.3 % (0-2.0); EOS % 1.4 % (0-4.5); HEMATOCRIT 25.5 % (35.4-49); HEMOGLOBIN 8.3 GM/dL (11.7-16.9); LYMPH % 19.2 % (8-40); MCH 32.8 pg (25.7-33.7); MCHC 32.4 g/dl (32.0-35.9); MEAN CELL VOLUME 101.3 fl (80-96); MONO % 8.8 % (3.8-10.2); NEUT % 70.3 % (42.8-82.8); PLATELET COUNT 214 10^3/uL (134-434); RBC 2.51 M/mm3 (4.00-5.60); WHITE BLOOD COUNT 11.8 K/mm3 (4.0-10.0)
[2024-08-21 08:11] LABS: POTASSIUM 3.3 mmol/L (3.5-5.1)
[2024-08-21 08:20] LABS: LACTIC ACID 2.6 mmol/L (0.4-2.0)
[2024-08-21 08:23] LABS: CALCIUM 7.5 mg/dL (8.5-10.1)
[2024-08-21 08:24] LABS: ALBUMIN 1.6 g/dl (3.4-5.0); BLOOD UREA NITROGEN 28.4 mg/dL (7-18); MAGNESIUM 2.4 mg/dL (1.8-2.4)
[2024-08-21 08:27] LABS: CREATININE 1.3 mg/dL (0.55-1.3)
[2024-08-21 08:28] LABS: BILIRUBIN,TOTAL 0.8 mg/dL (0.2-1)
[2024-08-21 08:29] LABS: TOT PROT 4.7 g/dl (6.4-8.2)
[2024-08-21] MEDS ORDERED: ALBUTEROL SO4 2.5/IPRATROPIUM 0.5 INH SOL 3 ML VIAL.NEB. NEB PRN (14:23)
[2024-08-21] MEDS ORDERED: ALBUTEROL SO4 0.083% IH SOL 2.5 MG/3 ML VIAL.NEB. NEB PRN (14:23)
[2024-08-21] MEDS: KCL 10 MEQ IVPB 10 MEQ/100 ML INFUS.BAG IVPB SCH (17:45)
[2024-08-21] MEDS: DOXYCYCLINE MONOHYDRATE 25 MG/5 ML SUSPENSION NGT SCH (19:34)
[2024-08-21] MEDS ORDERED: DOXYCYCLINE HYCLATE 100 MG CAPSULE PO SCH (19:46)
[2024-08-22 07:49] LABS: BASO % 0.6 % (0-2.0); EOS % 2.7 % (0-4.5); HEMATOCRIT 26.4 % (35.4-49); HEMOGLOBIN 8.9 GM/dL (11.7-16.9); LYMPH % 33.7 % (8-40); MCH 33.6 pg (25.7-33.7); MCHC 33.6 g/dl (32.0-35.9); MEAN CELL VOLUME 99.9 fl (80-96); MEAN PLT VOLUME 8.8 fl (7.5-11.1); MONO % 9.3 % (3.8-10.2); NEUT % 53.7 % (42.8-82.8); PLATELET COUNT 215 10^3/uL (134-434); RBC 2.64 M/mm3 (4.00-5.60); RDW 16.2 % (11.9-15.9); WHITE BLOOD COUNT 9.8 K/mm3 (4.0-10.0)
[2024-08-22 08:18] LABS: POTASSIUM 3.8 mmol/L (3.5-5.1)
[2024-08-22 08:27] LABS: CREATININE 1.1 mg/dL (0.55-1.3)
[2024-08-22 08:28] LABS: ALBUMIN 1.5 g/dl (3.4-5.0); BLOOD UREA NITROGEN 21.1 mg/dL (7-18); CALCIUM 7.7 mg/dL (8.5-10.1); MAGNESIUM 2.2 mg/dL (1.8-2.4)
[2024-08-22 08:30] LABS: TOT PROT 4.6 g/dl (6.4-8.2)
[2024-08-22 08:35] LABS: BILIRUBIN,TOTAL 0.6 mg/dL (0.2-1)
[2024-08-22] MEDS: DOXYCYCLINE MONOHYDRATE 25 MG/5 ML SUSPENSION PO SCH (10:24)
[2024-08-22] MEDS ORDERED: FUROSEMIDE 40 MG/4 ML INJECTABLE VIAL IVPUSH ONE (15:05)
[2024-08-22] MEDS: METOPROLOL TARTRATE 25 MG TABLET (FP) PO ONE (15:29)
[2024-08-22] MEDS: FUROSEMIDE 40 MG/4 ML INJECTABLE VIAL IVPUSH ONE (17:10)
[2024-08-22] MEDS: METOPROLOL TARTRATE 25 MG TABLET (FP) PO SCH (22:46)
[2024-08-23 07:06] LABS: BASO % 0.5 % (0-2.0); EOS % 3.2 % (0-4.5); HEMATOCRIT 26.3 % (35.4-49); HEMOGLOBIN 8.6 GM/dL (11.7-16.9); LYMPH % 29.1 % (8-40); MCH 33.6 pg (25.7-33.7); MCHC 32.9 g/dl (32.0-35.9); MEAN CELL VOLUME 102.3 fl (80-96); MEAN PLT VOLUME 8.8 fl (7.5-11.1); MONO % 8.8 % (3.8-10.2); NEUT % 58.4 % (42.8-82.8); PLATELET COUNT 212 10^3/uL (134-434); RBC 2.57 M/mm3 (4.00-5.60); RDW 16.9 % (11.9-15.9); WHITE BLOOD COUNT 8.7 K/mm3 (4.0-10.0)
[2024-08-23 07:16] LABS: POTASSIUM 3.4 mmol/L (3.5-5.1)
[2024-08-23 07:19] LABS: CALCIUM 7.8 mg/dL (8.5-10.1)
[2024-08-23 07:20] LABS: ALBUMIN 1.5 g/dl (3.4-5.0); BLOOD UREA NITROGEN 16.2 mg/dL (7-18); MAGNESIUM 1.8 mg/dL (1.8-2.4)
[2024-08-23 07:23] LABS: CREATININE 1.1 mg/dL (0.55-1.3); PHOSPHOROUS 2.8 mg/dL (2.5-4.9)
[2024-08-23 07:24] LABS: BILIRUBIN,TOTAL 0.4 mg/dL (0.2-1); TOT PROT 4.6 g/dl (6.4-8.2)
[2024-08-23] MEDS: AMINO ACIDS/PROTEIN HYDROLYS 30 ML LIQUID.PKT PO SCH (11:05)
[2024-08-23] MEDS: POTASSIUM CHLORIDE ORAL LIQUID 20 MEQ/15 ML PO SCH (18:09)
[2024-08-23] MEDS: FUROSEMIDE 40 MG/4 ML INJECTABLE VIAL IVPUSH ONE (18:10)
[2024-08-24 07:32] LABS: BASO % 0.3 % (0-2.0); EOS % 1.9 % (0-4.5); HEMATOCRIT 29.1 % (35.4-49); HEMOGLOBIN 9.4 GM/dL (11.7-16.9); LYMPH % 27.3 % (8-40); MCH 32.9 pg (25.7-33.7); MCHC 32.4 g/dl (32.0-35.9); MEAN CELL VOLUME 101.5 fl (80-96); MEAN PLT VOLUME 8.7 fl (7.5-11.1); NEUT % 62.5 % (42.8-82.8); PLATELET COUNT 252 10^3/uL (134-434); RBC 2.87 M/mm3 (4.00-5.60); RDW 16.4 % (11.9-15.9); WHITE BLOOD COUNT 11.4 K/mm3 (4.0-10.0)
[2024-08-24 07:45] LABS: CALCIUM 7.6 mg/dL (8.5-10.1)
[2024-08-24 07:46] LABS: ALBUMIN 1.6 g/dl (3.4-5.0); BLOOD UREA NITROGEN 14.5 mg/dL (7-18); MAGNESIUM 1.5 mg/dL (1.8-2.4)
[2024-08-24 07:49] LABS: PHOSPHOROUS 2.3 mg/dL (2.5-4.9)
[2024-08-24 07:50] LABS: BILIRUBIN,TOTAL 0.3 mg/dL (0.2-1)
[2024-08-24] MEDS: MAGNESIUM SULFATE IN WATER 2 GM/50 ML IVPB IVPB ONE (14:27)
[2024-08-25 08:05] LABS: ALBUMIN 1.4 g/dl (3.4-5.0); BLOOD UREA NITROGEN 14.2 mg/dL (7-18); CALCIUM 7.6 mg/dL (8.5-10.1); HEMATOCRIT 26.9 % (35.4-49); HEMOGLOBIN 8.7 GM/dL (11.7-16.9); MCH 32.9 pg (25.7-33.7); MCHC 32.2 g/dl (32.0-35.9); MEAN PLT VOLUME 8.8 fl (7.5-11.1); PLATELET COUNT 217 10^3/uL (134-434); POTASSIUM 4.1 mmol/L (3.5-5.1); RBC 2.64 M/mm3 (4.00-5.60); RDW 16.7 % (11.9-15.9)
[2024-08-25 08:06] LABS: PHOSPHOROUS 2.2 mg/dL (2.5-4.9)
[2024-08-25 08:07] LABS: BILIRUBIN,TOTAL 0.2 mg/dL (0.2-1)
[2024-08-25 08:11] LABS: CREATININE 0.8 mg/dL (0.55-1.3); TOT PROT 4.4 g/dl (6.4-8.2)
[2024-08-25] MEDS: POTASSIUM PHOSPHATE 30 MM in DEXTROSE 5%-WATER - 500 ML IVPB ONE (11:40)
[2024-08-26 07:42] LABS: BASO % 0.5 % (0-2.0); EOS % 3.1 % (0-4.5); HEMATOCRIT 25.5 % (35.4-49); HEMOGLOBIN 8.3 GM/dL (11.7-16.9); LYMPH % 25.3 % (8-40); MCHC 32.7 g/dl (32.0-35.9); MEAN PLT VOLUME 8.8 fl (7.5-11.1); MONO % 7.9 % (3.8-10.2); NEUT % 63.2 % (42.8-82.8); PLATELET COUNT 224 10^3/uL (134-434); RBC 2.52 M/mm3 (4.00-5.60); RDW 16.5 % (11.9-15.9); WHITE BLOOD COUNT 10.4 K/mm3 (4.0-10.0)
[2024-08-26 07:53] LABS: POTASSIUM 4.1 mmol/L (3.5-5.1)
[2024-08-26 08:07] LABS: BLOOD UREA NITROGEN 14.5 mg/dL (7-18); MAGNESIUM 1.7 mg/dL (1.8-2.4)
[2024-08-26 08:08] LABS: ALBUMIN 1.3 g/dl (3.4-5.0); CALCIUM 8.1 mg/dL (8.5-10.1)
[2024-08-26 08:10] LABS: CREATININE 0.8 mg/dL (0.55-1.3)
[2024-08-26 08:11] LABS: PHOSPHOROUS 3.7 mg/dL (2.5-4.9)
[2024-08-26 08:12] LABS: BILIRUBIN,TOTAL 0.3 mg/dL (0.2-1); TOT PROT 4.3 g/dl (6.4-8.2)
[2024-08-26] MEDS: MULTIVITAMINS (DAILY MVI) TABLET (FP) PO SCH (10:56)
[2024-08-26] MEDS: AMOX TR/POT CLAV 875MG/125MG TABLETS (FP) PO SCH (17:27)
[2024-08-26] MEDS: D5-1/2NS+20 MEQ KCL - 20 MEQ/1,000 ML INFUS.BAG IV SCH (19:50)
[2024-08-27 07:27] LABS: BASO % 0.5 % (0-2.0); EOS % 1.8 % (0-4.5); HEMATOCRIT 27.8 % (35.4-49); LYMPH % 22.2 % (8-40); MCH 32.9 pg (25.7-33.7); MCHC 32.3 g/dl (32.0-35.9); MEAN PLT VOLUME 8.7 fl (7.5-11.1); MONO % 8.6 % (3.8-10.2); NEUT % 66.9 % (42.8-82.8); PLATELET COUNT 238 10^3/uL (134-434); RBC 2.72 M/mm3 (4.00-5.60); RDW 16.3 % (11.9-15.9); WHITE BLOOD COUNT 13.7 K/mm3 (4.0-10.0)
[2024-08-27] MEDS: DEXTROSE 5%-0.45% SALINE 990 ML with POTASSIUM CHLORIDE 20 MEQ IV SCH (07:45)
[2024-08-27 07:47] LABS: POTASSIUM 3.8 mmol/L (3.5-5.1)
[2024-08-27 07:53] LABS: ALBUMIN 1.4 g/dl (3.4-5.0); CALCIUM 7.6 mg/dL (8.5-10.1); MAGNESIUM 1.6 mg/dL (1.8-2.4)
[2024-08-27 07:56] LABS: CREATININE 0.9 mg/dL (0.55-1.3); PHOSPHOROUS 2.9 mg/dL (2.5-4.9)
[2024-08-27 07:57] LABS: BILIRUBIN,TOTAL 0.2 mg/dL (0.2-1)
[2024-08-27 07:58] LABS: TOT PROT 4.6 g/dl (6.4-8.2)
[2024-08-27] MEDS: MAGNESIUM 2GM/50ML STERILE WATER IVPB IVPB ONE ×2 (12:42→17:26)
[2024-08-28 07:20] LABS: HEMATOCRIT 24.8 % (35.4-49); MCH 32.7 pg (25.7-33.7); MCHC 32.3 g/dl (32.0-35.9); MEAN CELL VOLUME 101.2 fl (80-96); MEAN PLT VOLUME 8.5 fl (7.5-11.1); PLATELET COUNT 220 10^3/uL (134-434); RBC 2.45 M/mm3 (4.00-5.60); RDW 16.7 % (11.9-15.9); WHITE BLOOD COUNT 13.6 K/mm3 (4.0-10.0)
[2024-08-28 07:29] LABS: POTASSIUM 3.9 mmol/L (3.5-5.1)
[2024-08-28 07:38] LABS: ALBUMIN 1.3 g/dl (3.4-5.0); BLOOD UREA NITROGEN 18.3 mg/dL (7-18); CALCIUM 7.8 mg/dL (8.5-10.1); MAGNESIUM 2.1 mg/dL (1.8-2.4)
[2024-08-28 07:42] LABS: CREATININE 0.9 mg/dL (0.55-1.3); PHOSPHOROUS 2.6 mg/dL (2.5-4.9)
[2024-08-28 07:44] LABS: BILIRUBIN,TOTAL 0.3 mg/dL (0.2-1); TOT PROT 4.4 g/dl (6.4-8.2)
[2024-08-28] MEDS: SODIUM CHLORIDE 500 ML IV STA (09:17)
[2024-08-28 10:42] VITALS: BP 101/67; PULSE 97; RESP 20; TEMP 98.2
== END 2024-08-28 11:37 | DRG 871 ==
LOC: JER 10:10 → JERBED 12:52 → J4W 16:21
PROVIDERS: ADMIT Internal Medicine; ATTEND Internal Medicine
DX: A41.9 Sepsis, unspecified organism (principal); G93.41 Metabolic encephalopathy; J96.01 Acute respiratory failure with hypoxia; J96.21 Acute and chronic respiratory failure with hypoxia; E87.0 Hyperosmolality and hypernatremia; N17.9 Acute kidney failure, unspecified; E87.20 Acidosis, unspecified; I13.0 Hypertensive heart and chronic kidney disease with heart failure and stage 1 through stage 4 chronic kidney disease, or unspecified chronic kidney disease; E46 Unspecified protein-calorie malnutrition; Z68.1 Body mass index [BMI] 19.9 or less, adult; J44.9 Chronic obstructive pulmonary disease, unspecified; I48.91 Unspecified atrial fibrillation; I69.391 Dysphagia following cerebral infarction; R13.10 Dysphagia, unspecified; I49.5 Sick sinus syndrome; I50.9 Heart failure, unspecified; N40.0 Benign prostatic hyperplasia without lower urinary tract symptoms; F01.50 Vascular dementia, unspecified severity, without behavioral disturbance, psychotic disturbance, mood disturbance, and anxiety; D53.9 Nutritional anemia, unspecified; E87.6 Hypokalemia; E83.42 Hypomagnesemia; Z95.0 Presence of cardiac pacemaker; Z99.81 Dependence on supplemental oxygen; N18.9 Chronic kidney disease, unspecified
CPT/HCPCS: 0241U-QW; 36415; 70450-TC; 71045-TC-FY; 73030-TC-RT-FY; 73060-TC-RT-FY; 80053; 81003; 82436; 82962; 83605; 83735; 83930; 83935; 84100; 84133; 84300; 84484; 85025; 85027; 86140; 87040; 87077; 87081; 87086; 93005; 93010; 97162-GP; 99291

== ENCOUNTER 2024-09-09 14:15 | Inpatient (IN) | payer OTHER, BC ==
[2024-09-09 15:44] LABS: ABSOLUTE IMMATURE GRANULOCYTES 0.04 x10^3/uL (0.0-0.031); BASOPHILS # 0.03 x10^3/uL (0.01-0.08); EOSINOPHIL % 2.5 % (0.8-7.0); EOSINOPHILS # 0.28 x10^3/uL (0.04-0.54); HEMATOCRIT 24.8 % (40.1-51.0); HEMOGLOBIN 7.5 g/dL (13.7-17.5); MCHC 30.2 g/dl (32.3-36.5); MEAN CELL VOLUME 106.9 fl (79.0-92.2); MEAN PLT VOLUME 10.3 fl (9.4-12.4); MONOCYTE # 1.15 x10^3/uL (0.30-0.82); MONOCYTE % 10.3 % (5.3-12.2); PLATELET COUNT 246 x10^3/uL (163-337); RDW 18.3 % (12.6-16.6)
[2024-09-09 15:50] LABS: VENOUS O2 SATURATION 50.6 % (70-80); VENOUS PCO2 47.5 mmHg (38-52); VENOUS PH 7.323 (7.310-7.410)
[2024-09-09 15:58] LABS: INR 1.59 (0.83-1.09); PROTHROMBIN TIME (PATIENT) 17.3 SEC (9.7-13.0)
[2024-09-09 16:00] LABS: ACTIVATED PTT 32.6 SECONDS (25.2-36.5)
[2024-09-09 16:11] LABS: EPI CELLS 5 /uL (0-25.1); HYALINE CASTS 7 /uL (0-3.1); PH,URINE 5.5 (5.0-8.0); URINE APPEARANCE TURBID; URINE BILIRUBIN 1+ (NEGATIVE); URINE COLOR ORANGE; URINE GLUCOSE (UA) NEGATIVE (NEGATIVE); URINE KETONE NEGATIVE (NEGATIVE); URINE LEUK ESTERASE 2+ (NEGATIVE); URINE NITRITE POSITIVE (NEGATIVE); URINE PROTEIN TRACE (NEGATIVE); URINE UROBILINOGEN 0.2 mg/dL (0.2-1.0); URINE WBC 38 /uL (0-25.8)
[2024-09-09 16:17] LABS: POTASSIUM 4.8 mmol/L (3.5-5.1)
[2024-09-09 16:18] LABS: CALCIUM 7.9 mg/dL (8.5-10.1)
[2024-09-09 16:19] LABS: ALBUMIN 1.3 g/dl (3.4-5.0); BLOOD UREA NITROGEN 20.9 mg/dL (7-18)
[2024-09-09] MEDS ORDERED: PIPERACILLIN/TAZOB 4.5 GM 4.5 GM/100 ML BAG IVPB ONE (16:19)
[2024-09-09] MEDS ORDERED: VANCOMYCIN 1 GM PREMIX (F) 1 GM/200 ML BAG ONE ×2 (16:19)
[2024-09-09 16:24] LABS: BILIRUBIN,TOTAL 0.3 mg/dL (0.2-1)
[2024-09-09] MEDS: PIPERACILLIN/TAZOB 4.5 GM 4.5 GM in DEXTROSE 5%-WATER 100 ML IVPB ONE (16:28)
[2024-09-09 16:36] LABS: URINE RBC 1209.4 /uL (0-23.9)
[2024-09-09] MEDS: VANCOMYCIN 1,000 MG in DEXTROSE 5%-WATER - 250 ML IVPB ONE (17:47)
[2024-09-09 20:49] LABS: HEMATOCRIT 26.3 % (40.1-51.0); HEMOGLOBIN 8.1 g/dL (13.7-17.5); MCHC 30.8 g/dl (32.3-36.5); MEAN CELL VOLUME 107.8 fl (79.0-92.2); MEAN PLT VOLUME 10.4 fl (9.4-12.4); PLATELET COUNT 237 x10^3/uL (163-337)
[2024-09-09 21:17] LABS: POTASSIUM 3.6 mmol/L (3.5-5.1)
[2024-09-09 21:18] LABS: CALCIUM 8.5 mg/dL (8.5-10.1)
[2024-09-09] MEDS ORDERED: ACETAMINOPHEN 325 MG TABLET (FP) PO PRN (22:00)
[2024-09-09] MEDS ORDERED: PATIENT'S OWN MEDICATION (NON-FORMULARY) (Aa/Hydrolyzed Collagen, Whey [Lps 15-30 Liquid] PO SCH (22:00)
[2024-09-09] MEDS: MUPIROCIN 2% TOPICAL OINTMENT 22 GM TUBE TP SCH (22:35)
[2024-09-09] MEDS: METOPROLOL TARTRATE 50 MG TABLET (FP) PO SCH (22:35)
[2024-09-09] MEDS: ASCORBIC ACID 500 MG TABLET (FP) PO SCH (22:35)
[2024-09-09] MEDS: QUEtiapine FUMARATE 100 MG TABLET (FP) PO SCH (22:35)
[2024-09-09] MEDS: LACTATED RINGERS SOLUTION 1000 ML INFUS.BAG IV ONE (22:36)
[2024-09-09] MEDS: LACTATED RINGERS SOLUTION 1,000 ML/1,000 ML INFUS.BAG IV SCH (22:37)
[2024-09-10] MEDS: LACTATED RINGERS SOLUTION 1000 ML INFUS.BAG IV ONE (06:07)
[2024-09-10] MEDS: VANCOMYCIN/WATER 1250 MG 1,250 MG/250 ML BAG IVPB SCH (06:09)
[2024-09-10] MEDS: PIPERACILLIN/TAZOB 4.5 GM 4.5 GM/100 ML BAG IVPB SCH ×2 (06:42→09:50)
[2024-09-10 07:58] LABS: POTASSIUM 3.3 mmol/L (3.5-5.1)
[2024-09-10 08:00] LABS: ALBUMIN 1.2 g/dl (3.4-5.0); BLOOD UREA NITROGEN 19.9 mg/dL (7-18); CALCIUM 7.6 mg/dL (8.5-10.1)
[2024-09-10 08:01] LABS: MAGNESIUM 1.5 mg/dL (1.8-2.4)
[2024-09-10 08:05] LABS: BILIRUBIN,TOTAL 0.3 mg/dL (0.2-1); CREATININE 0.9 mg/dL (0.55-1.3); PHOSPHOROUS 2.6 mg/dL (2.5-4.9); TOT PROT 4.4 g/dl (6.4-8.2)
[2024-09-10 09:48] LABS: HEMATOCRIT 22.9 % (40.1-51.0); HEMOGLOBIN 7.2 g/dL (13.7-17.5); MCHC 31.4 g/dl (32.3-36.5); MEAN PLT VOLUME 10.7 fl (9.4-12.4); PLATELET COUNT 244 x10^3/uL (163-337)
[2024-09-10] MEDS: MAGNESIUM SULFATE IN WATER 2 GM/50 ML IVPB IVPB ONE (09:49)
[2024-09-10] MEDS: BACITRACIN ZINC 15 GM TUBE TOPICAL OINTMENT TP SCH (09:49)
[2024-09-10] MEDS ORDERED: SODIUM CHLORIDE 0.45% 1,000 ML IV SCH (10:45)
[2024-09-10] MEDS: FOLIC ACID 1 MG TABLET (FP) PO SCH (12:14)
[2024-09-10] MEDS: TAMSULOSIN HCL 0.4 MG CAP PO SCH (12:14)
[2024-09-10] MEDS: PANTOPRAZOLE 40 MG TABLET PO SCH (12:15)
[2024-09-10] MEDS: ZINC SULFATE 220 MG CAPSULE (FP) PO SCH (12:15)
[2024-09-10] MEDS: KCL 10 MEQ IVPB 10 MEQ/100 ML INFUS.BAG IVPB SCH (13:57)
[2024-09-10] MEDS: LACTATED RINGERS SOLUTION 1,000 ML/1,000 ML INFUS.BAG IV SCH (19:34)
[2024-09-10] MEDS: PIPERACILLIN/TAZOB 4.5 GM 4.5 GM in DEXTROSE 5%-WATER 100 ML IVPB SCH (19:35)
[2024-09-10] MEDS: VANCOMYCIN 1,250 MG in DEXTROSE 5%-WATER - 250 ML IVPB SCH (19:35)
[2024-09-10] MEDS: POTASSIUM CHLORIDE TABS 20 MEQ TABLET.ER (FP) PO ONE (19:36)
[2024-09-10] MEDS: DEXTROSE 50%-WATER 25 GM/50 ML DISP.SYRIN IVPUSH ONE (22:54)
[2024-09-11] MEDS: DEXTROSE 50%-WATER 25 GM/50 ML DISP.SYRIN IVPUSH ONE (06:32)
[2024-09-11 07:21] LABS: HEMATOCRIT 24.2 % (40.1-51.0); HEMOGLOBIN 7.6 g/dL (13.7-17.5); MCHC 31.4 g/dl (32.3-36.5); MEAN CELL VOLUME 103.4 fl (79.0-92.2); MEAN PLT VOLUME 10.8 fl (9.4-12.4); PLATELET COUNT 201 x10^3/uL (163-337); RDW 18.7 % (12.6-16.6)
[2024-09-11 07:45] LABS: POTASSIUM 3.5 mmol/L (3.5-5.1)
[2024-09-11 08:05] LABS: CALCIUM 8.2 mg/dL (8.5-10.1)
[2024-09-11 08:06] LABS: ALBUMIN 1.4 g/dl (3.4-5.0); BLOOD UREA NITROGEN 18.1 mg/dL (7-18)
[2024-09-11 08:09] LABS: CREATININE 1.1 mg/dL (0.55-1.3)
[2024-09-11 08:10] LABS: BILIRUBIN,TOTAL 0.4 mg/dL (0.2-1)
[2024-09-11 08:11] LABS: TOT PROT 5.1 g/dl (6.4-8.2)
[2024-09-11] MEDS: DEXTROSE 5%-0.45% SALINE 1,000 ML IV SCH (10:00)
[2024-09-11] MEDS: AMINO ACIDS 4.25%/D5W 1,000 ML IV SCH ×2 (19:57→19:58)
[2024-09-11] MEDS: ACETAMINOPHEN 1000 MG/100 ML BAG IVPB PRN (21:51)
[2024-09-11] MEDS: APIXABAN 5 MG TABLET PO SCH (21:53)
[2024-09-12 14:16] LABS: HEMATOCRIT 24.3 % (40.1-51.0); HEMOGLOBIN 7.5 g/dL (13.7-17.5); MCHC 30.9 g/dl (32.3-36.5); MEAN PLT VOLUME 11.3 fl (9.4-12.4); PLATELET COUNT 156 x10^3/uL (163-337); RDW 18.9 % (12.6-16.6)
[2024-09-12 14:28] LABS: POTASSIUM 3.1 mmol/L (3.5-5.1)
[2024-09-12 14:30] LABS: CALCIUM 7.9 mg/dL (8.5-10.1)
[2024-09-12 14:31] LABS: ALBUMIN 1.3 g/dl (3.4-5.0); BLOOD UREA NITROGEN 13.9 mg/dL (7-18)
[2024-09-12 14:34] LABS: CREATININE 1.1 mg/dL (0.55-1.3)
[2024-09-12 14:35] LABS: BILIRUBIN,TOTAL 0.2 mg/dL (0.2-1); TOT PROT 4.7 g/dl (6.4-8.2)
[2024-09-13 07:54] LABS: HEMATOCRIT 24.6 % (40.1-51.0); HEMOGLOBIN 7.6 g/dL (13.7-17.5); MCHC 30.9 g/dl (32.3-36.5); MEAN PLT VOLUME 10.8 fl (9.4-12.4); PLATELET COUNT 221 x10^3/uL (163-337); RDW 18.6 % (12.6-16.6)
[2024-09-13 08:12] LABS: POTASSIUM 3.3 mmol/L (3.5-5.1)
[2024-09-13 08:23] LABS: CALCIUM 7.9 mg/dL (8.5-10.1)
[2024-09-13 08:24] LABS: ALBUMIN 1.3 g/dl (3.4-5.0); BLOOD UREA NITROGEN 13.4 mg/dL (7-18)
[2024-09-13 08:28] LABS: BILIRUBIN,TOTAL 0.3 mg/dL (0.2-1); TOT PROT 4.9 g/dl (6.4-8.2)
[2024-09-13] MEDS: KCL 10 MEQ IVPB 10 MEQ/100 ML INFUS.BAG IVPB SCH ×2 (10:08→15:05)
[2024-09-13] MEDS ORDERED: METOPROLOL TARTRATE 50 MG TABLET (FP) PO SCH (16:36)
[2024-09-13] MEDS: SODIUM CHLORIDE 500 ML IV STA ×2 (17:15→18:34)
[2024-09-13] MEDS ORDERED: LORazepam 2 MG/ML SDV VIAL IVPUSH PRN (18:13)
[2024-09-13] MEDS: SCOPOLAMINE HYDROBROMIDE 1 PATCH PATCH.TD72 TD SCH (18:33)
[2024-09-13] MEDS: LACTATED RINGERS SOLUTION 1,000 ML/1,000 ML INFUS.BAG IV SCH (18:33)
[2024-09-13] MEDS: morphine SULFATE 4 MG/ML VIAL IVPUSH PRN (22:30)
[2024-09-14] MEDS ORDERED: morphine SULFATE 4 MG/ML VIAL IVPUSH PRN (14:50)
[2024-09-14] MEDS: MORPHINE SULFATE/0.9% NACL/PF 100 MG/100 ML BAG IVPB SCH (20:13)
[2024-09-15 16:57] VITALS: BMI 23.9
[2024-09-15] MEDS ORDERED: ACETAMINOPHEN 1000 MG/100 ML BAG IVPB PRN (17:17)
[2024-09-15] MEDS ORDERED: morphine SULFATE 4 MG/ML VIAL IVPUSH PRN (17:17)
[2024-09-15] MEDS ORDERED: LORazepam 2 MG/ML SDV VIAL IVPUSH PRN (17:17)
[2024-09-15] MEDS: MORPHINE SULFATE/0.9% NACL/PF 100 MG/100 ML BAG IVPB SCH (18:05)
[2024-09-16] MEDS: SCOPOLAMINE HYDROBROMIDE 1 PATCH PATCH.TD72 TD SCH (17:33)
[2024-09-16 20:37] VITALS: BP 97/33; PULSE 49; RESP 9; TEMP 97.5
== END 2024-09-17 04:40 | disposition expired | DRG 871 ==
LOC: JER 14:15 → JERBED 15:27 → J4W 19:18 → J8W 09-15 16:23
PROVIDERS: ADMIT Internal Medicine; ATTEND Nurse Practitioner Acute Care
DX: A41.9 Sepsis, unspecified organism (principal); J18.9 Pneumonia, unspecified organism; J96.21 Acute and chronic respiratory failure with hypoxia; I13.0 Hypertensive heart and chronic kidney disease with heart failure and stage 1 through stage 4 chronic kidney disease, or unspecified chronic kidney disease; J98.11 Atelectasis; E87.0 Hyperosmolality and hypernatremia; N39.0 Urinary tract infection, site not specified; J90 Pleural effusion, not elsewhere classified; F03.90 Unspecified dementia, unspecified severity, without behavioral disturbance, psychotic disturbance, mood disturbance, and anxiety; E11.22 Type 2 diabetes mellitus with diabetic chronic kidney disease; N18.9 Chronic kidney disease, unspecified; I48.91 Unspecified atrial fibrillation; I49.5 Sick sinus syndrome; E88.09 Other disorders of plasma-protein metabolism, not elsewhere classified; L89.610 Pressure ulcer of right heel, unstageable; R65.20 Severe sepsis without septic shock; R62.7 Adult failure to thrive; Z68.23 Body mass index [BMI] 23.0-23.9, adult
CPT/HCPCS: 0241U-QW; 36415; 71045-TC-FY; 71250-TC; 73030-TC-RT-FY; 80048; 80053; 81003; 82803; 82962; 83605; 83735; 84100; 84295; 84484; 85025; 85027; 85610; 85730; 86850; 86900; 86901; 87040; 87086; 93005; 93010; 93306-TC; 94660; 99291; J0131